=== PATIENT | female | born 1965 | race Asian ===

== ENCOUNTER 2018-11-19 14:01 | Outpatient (CLI) | payer OTHER | END 2018-11-19 23:17 | disposition home or self-care (01) | LOC: MAMMO 14:01 | DX: Z12.31 Encounter for screening mammogram for malignant neoplasm of breast (principal) ==

== ENCOUNTER 2021-07-05 14:56 | Outpatient (CLI) | payer OTHER | END 2021-07-05 20:15 | disposition home or self-care (01) | LOC: RESP 14:56 | PROVIDERS: ATTEND Nurse Practitioner Family | DX: R01.1 Cardiac murmur, unspecified (principal) ==